=== PATIENT | male | born 1940 | race Caucasian/White ===

== ENCOUNTER 2021-12-04 23:50 | Emergency (ER) | payer OTHER ==
[~2021-12-04] VITALS: Ht 154.9 cm; Wt 81.6 kg
[2021-12-05 00:26] VITALS: BP 131/80
[2021-12-05] MEDS ORDERED: HYDROCODONE/APAP 5/325MG TABLET PO ONE (00:30)
[2021-12-05] MEDS ORDERED: HYDROCODONE/APAP 5/325MG TABLET ONE (01:09)
--- NOTE | 2021-12-05 01:17 | NUR ---
Patient discharged to home in stable condition. Written and verbal after care instructions given. Patient verbalizes understanding of instruction.
== END 2021-12-05 02:06 | disposition home or self-care (01) ==
LOC: ER 12-05
DX: G89.18 Other acute postprocedural pain (principal); H57.11 Ocular pain, right eye; J44.9 Chronic obstructive pulmonary disease, unspecified; Z98.41 Cataract extraction status, right eye